=== PATIENT | male | born 2000 | race Caucasian/White ===

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

== ENCOUNTER 2020-08-10 05:58 | Inpatient (IN) | payer OTHER ==
[~2020-08-10] VITALS: Ht 182.9 cm; Wt 88.6 kg
[~2020-08-10 05:58] MED LIST changes: +RISP-7 PO; -RISP0.5T3 PO
[2020-08-10] MEDS ORDERED: HALOPERIDOL 5MG/ML VIAL (J1630 PER 1) IM ONE (06:05)
[2020-08-10] MEDS ORDERED: LORazepam 2 MG/ML VIAL As Ordered ONE (06:05)
[2020-08-10] MEDS ORDERED: LORazepam 2 MG/ML VIAL IM ONE (06:05)
[2020-08-10] MEDS ORDERED: HALOPERIDOL 5MG/ML VIAL (J1630 PER 1) As Ordered ONE (06:05)
[2020-08-10] MEDS ORDERED: SERO1TAB PO (06:22)
[2020-08-10] MEDS ORDERED: [UNRECOGNIZED DRUG - CODE] IM (06:22)
[2020-08-10 06:33] LABS: HEMATOCRIT 48.1 % (42.0-52.0); HEMOGLOBIN 17.4 g/dl (13.5-17.5); MEAN CORPUSCULAR HEMOGLOBIN 30.6 pg (27.0-33.0); MEAN CORPUSCULAR HGB CONC 36.2 g/dl (32.0-36.5); MEAN CORPUSCULAR VOLUME 84.7 fl (80.0-96.0); PLATELET COUNT, AUTOMATED 225 10^3/uL (150-450); RED BLOOD COUNT 5.68 10^6/uL (4.30-6.10); WHITE BLOOD COUNT 12.4 10^3/uL (4.0-10.0)
[2020-08-10 07:01] LABS: BLOOD UREA NITROGEN 14 MG/DL (7-18); CALCIUM LEVEL 8.3 MG/DL (8.5-10.1); CARBON DIOXIDE LEVEL 23 MEQ/L (21-32); CHLORIDE LEVEL 106 MEQ/L (98-107); CREATININE FOR GFR 0.98 MG/DL (0.70-1.30); GLUCOSE, FASTING 84 MG/DL (70-100); POTASSIUM SERUM 3.5 MEQ/L (3.5-5.1); SODIUM LEVEL 138 MEQ/L (136-145)
[2020-08-10 07:02] LABS: ACETAMINOPHEN LEVEL < 2.0 UG/ML (10.0-30.0); ALBUMIN 4.4 GM/DL (3.2-5.2); ALT/SGPT 38 U/L (12-78); BILIRUBIN,DIRECT 0.2 MG/DL (0.0-0.2); BILIRUBIN,TOTAL 0.8 MG/DL (0.2-1.0); ETHYL ALCOHOL (ETHANOL) 0.038 % (0.000-0.010); SALICYLATE LEVEL < 1.7 MG/DL (5.0-30.0); TOTAL PROTEIN 7.2 GM/DL (6.4-8.2)
[2020-08-10 10:49] LABS: AMPHETAMINES LEVEL URINE NEGATIVE (NEGATIVE); BARBITURATES URINE NEGATIVE (NEGATIVE); BENZODIAZEPINES URINE NEGATIVE (NEGATIVE); CANNABINOIDS URINE NEGATIVE (NEGATIVE); COCAINE METABOLITE URINE NEGATIVE (NEGATIVE); METHADONE URINE NEGATIVE (NEGATIVE); OPIATES URINE NEGATIVE (NEGATIVE); PHENCYCLIDINE URINE NEGATIVE (NEGATIVE)
[2020-08-10] MEDS ORDERED: LORazepam 1 MG TAB PO STA (15:52)
[2020-08-10] MEDS ORDERED: LORazepam 2 MG TAB PO STA (17:21)
[2020-08-10] MEDS ORDERED: RISP-8 PO (18:16)
[2020-08-10] MEDS ORDERED: risperiDONE 1 MG TAB PO ONE (19:25)
[2020-08-10] MEDS ORDERED: QUEtiapine FUMARATE 100 MG TAB PO ONE (19:25)
[2020-08-11] MEDS ORDERED: LORazepam 2 MG TAB PO ONE (04:00)
[2020-08-11] MEDS ORDERED: risperiDONE 1 MG TAB PO ONE ×2 (08:50→20:30)
[2020-08-11] MEDS ORDERED: LORazepam 1 MG TAB PO STA (12:57)
[2020-08-11 17:48] LABS: RSV AMPLIFICATION NEGATIVE (NEGATIVE)
--- NOTE | 2020-08-11 18:10 | ECGEPIP ---
[facility] - ED Test Date: 2020-08-10 Pat Name: DHEERAJ BAUTISTA Department: Room: - Gender: Male Pump Tester: : 2000 Requested By: Jignesh Suggs Order Number: [id number] Reading MD: Jignesh Suggs Measurements Intervals [place] Rate: 76 P: 30 OK: 130 QRS: 82 QRSD: 86 T: 46 QT: 380 QTc: 427 Interpretive Statements Normal sinus rhythm Nonspecific ST T wave changes cw 06/27/[address] T wave changes Electronically Signed on 08-11-2020 18:10:30 EDT by Jignesh Suggs
[2020-08-11] MEDS ORDERED: LORazepam 2 MG TAB PO STA (18:47)
[2020-08-11] MEDS ORDERED: QUEtiapine FUMARATE 100 MG TAB PO ONE (20:30)
[2020-08-12] MEDS ORDERED: OLANZapine ORAL DISINTEGRATING TAB 5MG PO ONE (02:00)
[2020-08-12] MEDS ORDERED: LORazepam 2 MG TAB PO ONE (06:35)
[2020-08-12] MEDS ORDERED: risperiDONE 1 MG TAB PO ONE (06:35)
[2020-08-12] MEDS ORDERED: LORazepam 2 MG TAB PO STA (10:48)
[2020-08-12] MEDS ORDERED: MOM 30ML SUSPENSION UDC PO PRN (11:35)
[2020-08-12] MEDS ORDERED: traZODone 50 MG TAB PO PRN (11:35)
[2020-08-12] MEDS ORDERED: MAALOX 30 ML SUSP *UDC PO PRN (11:35)
[2020-08-12] MEDS ORDERED: LORazepam 1 MG TAB PO PRN (11:35)
[2020-08-12] MEDS ORDERED: haloperidoL 5 MG TAB PO PRN (11:35)
[2020-08-12] MEDS ORDERED: ACETAMINOPHEN TAB 650MG DOSE (2X325MG) PO PRN (11:35)
[2020-08-12 14:02] VITALS: BP 153/76
[2020-08-12] MEDS ORDERED: PALIPERIDONE 6 MG ER TAB (INVEGA) PO SCH (18:00)
[2020-08-13 06:00] VITALS: BP 150/70
[2020-08-13] MEDS ORDERED: risperiDONE 1 MG TAB PO SCH (09:00)
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
[2020-08-13] MEDS ORDERED: BENZTROPINE MESYLATE 2MG/2ML VIAL IM ONE (13:00)
[2020-08-13] MEDS ORDERED: BENZTROPINE MESYLATE 2MG/2ML VIAL As Ordered ONE (13:03)
[2020-08-13] MEDS: NICOTINE 21MG/24HR 1 EA TRANSDERMAL TD PRN (15:48)
--- NOTE | 2020-08-13 16:17 | HPEPDOC ---
[facility] Medical History & Physical Date of Admission Aug 13, 2020 Date of Service: Aug 13, 2020 History and Physical CHIEF COMPLAINT: agitation HISTORY OF PRESENT ILLNESS: A 19-year-old male with past medical history of ADHD and bipolar disorder, brought to ER by police due to agitated behavior, restlessness suspected angel. Patient reports perking up this girlfriend recently. Patient does not want to go to detox to why he is here. He is conversational and pleasant, although appears to be mistrusting. Patient denies any chest pain, palpitations, nausea, vomiting, diarrhea, headaches, seizures, blurred vision. Noted to have slight elevation of WBC. Denies any dysuria, cough, shortness of breath or diarrhea. Hospitalist service was consulted for medical intake. PAST MEDICAL HISTORY: ADHD, bipolar PAST SURGICAL HISTORY: Reports none SOCIAL HISTORY: Smokes daily. He also chews tobacco. Vapes. Denies etoh use, however MODE elevated Denies illicit drug use FAMILY HISTORY: Reviewed with patient. No pertinent family history, provided ALLERGIES: Please see below. REVIEW OF SYSTEMS: 10 point ROS was completed of the findings are noted in the HPI. HOME MEDICATIONS: Please see below. PHYSICAL EXAMINATION: VITAL SIGNS: please see below General: NAD, comfortable HEENT: PERRLA, EOMI, sclerae clear Neck: supple, normal ROM, no JVD Respiratory: lungs CTAB, no wheeze, no rales, no crackles CVS: RRR, normal S1, S2, no murmurs Abdo: soft, no masses, no hepatosplenomegaly, BS+, no rebound tenderness Extremities: no edema, pulses 2+ MSK: no joint deformities, normal ROM Neuro: no focal neuro deficits, moving all 4 extremities, CN2-12 intact. Strength 5/5 in all 4 extremities. No nystagmus. Psych: calm, cooperative, AAO x 3 LABORATORY DATA: See below. MICROBIOLOGY: Please see below. ASSESSMENT: A 19-year-old male with past medical history of ADHD and bipolar disorder, brought to ER by police due to agitated behavior, restlessness suspected angel. Patient reports perking up this girlfriend recently. Patient does not want to go to detox to why he is here. He is conversational and pleasant, although appears to be mistrusting. Patient denies any chest pain, palpitations, nausea, vomiting, diarrhea, headaches, seizures, blurred vision. Noted to have slight elevation of WBC. Denies any dysuria, cough, shortness of breath or diarrhea. Hospitalist service was consulted for medical intake. PLAN: #Manic behaviour/bipolar: per psychiatry #Leukocytosis: denies cough, dysuria, fevers, chills. Afebrile. Possibly reactive. Will repeat CBC. #Nicotine dependence: nicotine patch. Smoking cessation counseling provided. Thank you for involving me in the care of the patient. Please reconsult as needed. Vital Signs Vital Signs Date Time Temp Pulse Resp B/P (MAP) Pulse Ox O2 Delivery O2 Flow Rate FiO2 08/13/20 06:00 97.2 76 16 150/70 (96) 98 Room Air Home Medications Scheduled Paliperidone Palmitate (Invega Sustenna) 78 Mg/0.5 Ml Syringe, 78 MG IM QMONTH Quetiapine Fumarate (Seroquel) 100 Mg Tablet, 100 MG PO QHS Risperidone (Risperidone) 1 Mg Tablet, 1 MG PO BID Allergies Coded Allergies: diphenhydramine (Verified Allergy, Intermediate, AGITATION, 08/10/20) A-FIB/CHADSVASC A-FIB History Current/History of A-Fib/PAF?: No Current PO Anticoag Therapy: No MARTINE MCKOY MD Aug 13, 2020 16:17
[2020-08-13 17:58] LABS: BASO # 0.1 10^3/uL (0.0-0.2); BASO % 0.5 % (0.0-1.0); EOS # 0.1 10^3/uL (0.0-0.5); EOS % 1.2 % (0.0-3.0); HEMATOCRIT 46.5 % (42.0-52.0); HEMOGLOBIN 16.4 g/dl (13.5-17.5); LYMPH # 3.3 10^3/uL (1.5-5.0); LYMPH % 32.7 % (24.0-44.0); MEAN CORPUSCULAR HEMOGLOBIN 30.4 pg (27.0-33.0); MEAN CORPUSCULAR HGB CONC 35.3 g/dl (32.0-36.5); MEAN CORPUSCULAR VOLUME 86.1 fl (80.0-96.0); MONO % 9.8 % (2.0-8.0); NEUTROPHILS # 5.5 10^3/uL (1.5-8.5); NEUTROPHILS % 55.3 % (36.0-66.0); PLATELET COUNT, AUTOMATED 240 10^3/uL (150-450)
[2020-08-13 18:32] VITALS: BP 146/87
[2020-08-13] MEDS: QUEtiapine FUMARATE 100 MG TAB PO SCH (20:39)
[2020-08-14 06:24] VITALS: BP 143/84
[2020-08-14] MEDS: NICOTINE 21MG/24HR 1 EA TRANSDERMAL TD PRN (08:07)
--- NOTE | 2020-08-14 11:28 | MHIPNPDOC ---
[facility] Progress Note Progress Note DATE OF SERVICE: 08/14/20 HISTORY: Patient is a 19-year-old Single, Employed , male, who was brought in by his mother for manic behaviors. He states, "I don't know why I am here. I guess it was because I was manic." When asked what had precipitated his manic he states, "I don't remember." When asked what his mother's concerns were, he shrugs his shoulders and states "I dumped my girlfriend because she was trying to be like my Mom and nobody fucking does that." Patient was not forthcoming and much of the information is obtained from the ED report. Patient was very minimal in his responses and was hostile and mildly agitated. PER ED REPORT: Pt came to [facility] with police due to a manic episode. Pts mother is in his room with him, this seems to calm pt. down significantly. Pt is very verbally ag itated, restless, appears manic however, is currently redirectable. Pt reports that he came here via police, pt. is unsure why. Pt reports that he has not slept. Pt reports that he is currently hearing voices however, does not feel comfortable telling tw what the voices are saying. Pt reports that he sees Dr. French, and that everything is going fine. Pt begins to talk in circles and seems very restless, has racing thoughts and pressured speech. Pt reports that 2 weeks ago, he broke up with his girlfriend because, "she is a bitch". Pt will not go into detail on why she is a bitch and what made him breakup with her. Pt began pacing back and forth, pt. is unable to engage in conversation therefore, interview was aborted prematurely. Pts mother is a better historian and reports that pt. has been having periods of angel since he was 13. Pts mother reports that Dr. French has been doing wonders with pts mental health and they have gone awhile since pt. has declined. Pts mother reports that pt. is on Invega Sustenna and had a dose of 117 yesterday 08/09/2020. Pts mother reports that when he gets like this they know it is time for an inpt stay. Pts mother also reports that pt. is on Seroquel and Risperdal as needed and that pt. has been compliant with all medications. Tw tried to talk with pt. at 12:30 pm, pt. was sleeping. Pt mom asked tw if we could continue to let him sleep. Tw tried talking with pt. at 2:15 pm, at the request of the pt. approximately a half hour prior however, once tw was available for interview pt. was sleeping and difficult to wake. VITAL SIGNS: See below. NEW TEST RESULTS: No abnormalities in cholesterol/Lipid Panel CURRENT MEDICATIONS: See below. MENTAL STATUS EXAMINATION: Patient is a 19-year-old Single, Employed , male, who was brought in by his mother for manic behaviors. He states, "I don't know why I am here. I guess it was because I was manic." General Appearance: unkempt, disheveled, appears stated age Build: average Demeanor: cooperative and pleasant Eye Contact: intense Activity: average Behavior: cooperative Speech: clear Mood: euthymic Affect: full Thought Process: logical/linear Thought Content (Delusions): denies SI, HI, AVH Thought Content (Other): guarded Thought Content (Aggressive): none reported Perception (Hallucinations): none reported Perception (Other): none reported Cognition (Impairment of): none reported Cognition(Intelligence Est.): average Oriented: Awake, Alert, Oriented times three Insight: fair Judgment: Fair Psychosis: Denies DIAGNOSES: Bipolar I, Recurrent, Manic ASSESSMENT: Patient is calm and cooperative. He is social in the milieu, out in the common areas. States that he is attending groups. He denies depression or anxiety. He is not observed with any manic or psychotic behaviors. Patient states that he is at his baseline and does not feel manic today. He is not agitated or irritable or hostile in today's interview. States that he would like to be discharged soon. Patient met with this provider in the late afternoon yesterday. He was complaining of being very agitated. He then became very agitated while in the office and yelled, "I can't take it! It feels like there are bugs crawling all over me!" Patient began to rip his shirt off of him. Stat order of Cogentin 2 mg IM was ordered. Patient reported that this was very effective and that he had not had that Akathisia side effect since yesterday. He requests in today's session a PRN of Cogentin on discharge. MANAGEMENT PLAN: Continue all medications, possible discharge tomorrow TIME SPENT: 25 minutes. Vital Signs Vital Signs Date Time Temp Pulse Resp B/P (MAP) Pulse Ox O2 Delivery O2 Flow Rate FiO2 08/14/20 06:24 97.1 104 18 143/84 (103) 100 Room Air Laboratory Data 24H Labs Laboratory Tests 2 08/13/20 16:34: Immature Granulocyte % (Auto) 0.5, Neutrophils (%) (Auto) 55.3, Lymphocytes (%) (Auto) 32.7, Monocytes (%) (Auto) 9.8H, Eosinophils (%) (Auto) 1.2, Basophils (%) (Auto) 0.5, Neutrophils # (Auto) 5.5, Lymphocytes # (Auto) 3.3, Monocytes # (Auto) 1.0H, Eosinophils # (Auto) 0.1, Basophils # (Auto) 0.1, Nucleated Red Blood Cells % (auto) 0.0 CBC/BMP Laboratory Tests 08/13/20 16:34 Current Medications Current Medications Medications (Trade) Dose Ordered Sig/Sandra Route PRN Reason Start Time Stop Time Status Last Admin Dose Admin Acetaminophen (Tylenol Tab) 650 mg Q6HP PRN PO HEADACHE or MILD DISCOMFORT 08/12/20 11:35 Al Hydrox/Mg Hydrox/Simethicone (Mylanta) 30 ml Q4HP PRN PO HEARTBURN/INDIGESTION 08/12/20 11:35 Haloperidol (Haldol) 5 mg Q6HP PRN PO ANXIETY/AGITATION 08/12/20 11:35 08/12/20 22:18 Home Med (Med Rec Complete!) ASDIRECTED XX 08/10/20 18:20 08/10/20 18:19 DC Lorazepam (Ativan) 1 mg Q6HP PRN PO ANXIETY/AGITATION 08/12/20 11:35 08/12/20 22:18 Lorazepam (Ativan) 1 mg STAT STAT PO 08/10/20 15:52 08/10/20 15:53 DC 08/10/20 16:05 Lorazepam (Ativan) 1 mg STAT STAT PO 08/11/20 12:57 08/11/20 12:58 DC 08/11/20 13:07 Lorazepam (Ativan) 2 mg NOW STAT PO 08/11/20 18:47 08/11/20 18:51 DC 08/11/20 19:42 Lorazepam (Ativan) 2 mg STAT STAT PO 08/10/20 17:21 08/10/20 17:22 DC 08/10/20 17:26 Lorazepam (Ativan) 2 mg STAT STAT PO 08/12/20 10:48 08/12/20 10:50 DC 08/12/20 10:53 Magnesium Hydroxide (Milk Of Magnesia) 30 ml DAILYPRN PRN PO CONSTIPATION 08/12/20 11:35 Nicotine (Nicoderm Cq 21mg) 1 patch DAILYPRN PRN TD NICOTINE WITHDRAWAL 08/13/20 15:40 08/14/20 08:07 Paliperidone (Invega) 6 mg DAILY@1800 PO 08/12/20 18:00 08/13/20 12:59 DC 08/12/20 17:22 Quetiapine Fumarate (SEROquel) 100 mg QHS PO 08/13/20 21:00 08/13/20 20:39 Risperidone (RisperDAL) 1 mg BID PO 08/13/20 09:00 08/13/20 10:28 DC 08/13/20 09:34 Trazodone HCl (Desyrel) 50 mg QHSP PRN PO INSOMNIA 08/12/20 11:35 08/12/20 21:14 Allergies Coded Allergies: diphenhydramine (Verified Allergy, Intermediate, AGITATION, 08/10/20) DEANA LEON NP Aug 14, 2020 11:28
[2020-08-14] MEDS ORDERED: BENZTROPINE MESYLATE 2MG/2ML VIAL IM ONE (15:00)
[2020-08-14 19:21] VITALS: BP 173/86
[2020-08-14] MEDS: QUEtiapine FUMARATE 100 MG TAB PO SCH (20:17)
[2020-08-15 06:48] VITALS: BP 154/69
[2020-08-15] MEDS ORDERED: NICO21PAT TD (09:05)
[2020-08-15] MEDS ORDERED: SERO1TAB PO (09:05)
[2020-08-15] MEDS ORDERED: RISP-8 PO (09:05)
--- NOTE | 2020-08-15 11:15 | MHDSPDOC ---
[facility] Discharge Summary Discharge Summary DATE OF ADMISSION: Aug 12, 2020 at 05:57 DATE OF DISCHARGE: August 15, 2020 at 0908 DISCHARGE DIAGNOSES: Bipolar I, Recurrent, Manic REASON FOR ADMISSION: : Patient is a 19-year-old Single, Employed , male, who was brought in by his mother for manic behaviors. He states, "I don't know why I am here. I guess it was because I was manic." When asked what had precipitated his manic he states, "I don't remember." When asked what his mother's concerns were, he shrugs his shoulders and states "I dumped my girlfriend because she was trying to be like my Mom and nobody fucking does that." Patient was not forthcoming and much of the information is obtained from the ED report. Patient was very minimal in his responses and was hostile and mildly agitated. PER ED REPORT: Pt came to [facility] with police due to a manic episode. Pts mother is in his room with him, this seems to calm pt. down significantly. Pt is very verbally agitated, restless, appears manic however, is currently redirectable. Pt reports that he came here via police, pt. is unsure why. Pt reports that he has not slept. Pt reports that he is currently hearing voices however, does not feel comfortable telling tw what the voices are saying. Pt reports that he sees Dr. French, and that everything is going fine. Pt begins to talk in circles and seems very restless, has racing thoughts and pressured speech. Pt reports that 2 weeks ago, he broke up with his girlfriend because, "she is a bitch". Pt will not go into detail on why she is a bitch and what made him breakup with her. Pt began pacing back and forth, pt. is unable to engage in conversation therefore, interview was aborted prematurely. Pts mother is a better historian and reports that pt. has been having periods of angel since he was 13. Pts mother reports that Dr. French has been doing wonders with pts mental health and they have gone awhile since pt. has declined. Pts mother reports that pt. is on Invega Sustenna and had a dose of 117 yesterday 08/09/2020. Pts mother reports that when he gets like this they know it is time for an inpt stay. Pts mother also reports that pt. is on Seroquel and Risperdal as needed and that pt. has been compliant with all medications. Tw tried to talk with pt. at 12:30 pm, pt. was sleeping. Pt mom asked tw if we could continue to let him sleep. Tw tried talking with pt. at 2:15 pm, at the request of the pt. approximately a half hour prior however, once tw was available for interview pt. was sleeping and difficult to wake. VITAL SIGNS: See below. TREATMENT AND PROGRESS ON THE UNIT: Patient was admitted to the [facility] on a 9.39 legal status he was afforded the following treatment modalities: 1) Individual Therapy 2) Group Therapy 3) Medication Management 4) Milieu Therapy 5) Safe Environment HOSPITAL COURSE: Patient was admitted to [facility] on a 9.39 legal status. He was restarted on his home medication While admitted he had mild presentation of hypomania and denied suicidal or homiocidal thoughts, He denies depression and anxiety, denies thoughts to self harm or harm others. He attended groups and acted accordingly while on the unit. He was social and conversant with his peers. He was compliant with medications and is requesting discharge today. DISCHARGE ASSESSMENT: In today's interview, patient is alert and oriented, pts dress is appropriate. Hygiene and grooming is well-kempt. Smiles on approach and is pleasant and engaged in the interview. Denies depression and anxiety. Denies suicidal and homicidal ideation, planning or intent. Denies and is not observed with angel, psychotic symptoms of delusions, bizarre thinking, obsessions, paranoia, ruminations illogical thoughts, flight of ideas or having poor insight and judgement. Patient has normal mentation, declines further hospitalization on a voluntary status and meets criteria for discharge today. Patient encouraged to return to hospital if symptoms worsen or change and encouraged to call unit if he/she/they needs to speak to provider for questions regarding medications or care. MENTAL STATUS EXAMINATION ON DISCHARGE: Patient is a 19-year-old Single, Employed , male, who was brought in by his mother for manic behaviors. He states, "I don't know why I am here. I guess it was because I was manic." General Appearance: well-kempt, appears stated age Build: average Demeanor: cooperative and pleasant Eye Contact: intense Activity: average Behavior: cooperative Speech: clear Mood: euthymic Affect: full Thought Process: logical/linear Thought Content (Delusions): denies SI, HI, AVH Thought Content (Other): guarded Thought Content (Aggressive): none reported Perception (Hallucinations): none reported Perception (Other): none reported Cognition (Impairment of): none reported Cognition(Intelligence Est.): average Oriented: Awake, Alert, Oriented times three Insight: fair Judgment: Fair Psychosis: Denies MEDICATIONS ON DISCHARGE: See Medication Reconciliation PLAN/FOLLOWUP ARRANGEMENTS: Dr. Smith French The amount of time spent in the coordination of care for this patient was approximately 25 minutes. ETOH/Disorder Med Rx ETOH/DRUG DISORDER RX: Offrd @ d/c & pt refused Vital Signs/I&Os Vital Signs Date Time Temp Pulse Resp B/P (MAP) Pulse Ox O2 Delivery O2 Flow Rate FiO2 08/15/20 06:48 98.4 88 18 154/69 (97) 97 Room Air Medications Scheduled Paliperidone Palmitate (Invega Sustenna) 78 Mg/0.5 Ml Syringe, 78 MG IM QMONTH, (Reported) Quetiapine Fumarate (Seroquel) 100 Mg Tablet, 100 MG PO QHS for Sleep, #7 Risperidone (Risperidone) 1 Mg Tablet, 1 MG PO BID for Mood, #7 Scheduled PRN Nicotine (Nicotine Patch) 21 Mg Patch.td24, 1 PATCH TD DAILYPRN PRN for NICOTINE WITHDRAWAL, #7 Allergies Coded Allergies: diphenhydramine (Verified Allergy, Intermediate, AGITATION, 08/10/20) DEANA LEON REPORTING PROCESS CONSULTANT Aug 15, 2020 09:09
[2020-08-15] MEDS ORDERED: BENZ0.5T23 PO (12:21)
== END 2020-08-15 11:20 | disposition home or self-care (01) | DRG 885 ==
LOC: M ED 05:58 → M ED INP 08-12 05:57 → M PSY 08-12 14:08
PROVIDERS: ADMIT Psychiatry & Neurology Psychiatry; ATTEND Psychiatry & Neurology Psychiatry
DX: F31.9 Bipolar disorder, unspecified (principal); F17.290 Nicotine dependence, other tobacco product, uncomplicated; Z20.822 Contact with and (suspected) exposure to COVID-19; D72.829 Elevated white blood cell count, unspecified

== ENCOUNTER → 2021-02-21 | Outpatient (REF) | payer OTHER ==
[~2021-02-21] MED LIST changes: +BENZ0.5T23 PO; +NICO21PAT TD; +RISP-8 PO; +SERO1TAB PO; +[UNRECOGNIZED DRUG - CODE] IM
== END ==
LOC: M SFHCADAM 17:27
PROVIDERS: ATTEND Physician Assistant Medical
DX: R19.5 Other fecal abnormalities (principal)

== ENCOUNTER → 2021-02-23 | Outpatient (REF) | payer OTHER | LOC: M LAB REF 12:31 | PROVIDERS: ATTEND Physician Assistant Medical | DX: R19.5 Other fecal abnormalities (principal) ==

== ENCOUNTER 2021-04-14 00:43 | Inpatient (IN) | payer OTHER ==
[~2021-04-14] VITALS: Ht 175.3 cm; Wt 90.5 kg
[2021-04-14] MEDS ORDERED: RISP1SS PO (01:04)
[2021-04-14] MEDS ORDERED: LAMO100T80 PO (01:06)
[2021-04-14] MEDS ORDERED: TRAZ300T2 PO (01:06)
[2021-04-14 01:44] LABS: HEMATOCRIT 44.7 % (42.0-52.0); HEMOGLOBIN 16.3 g/dl (13.5-17.5); MEAN CORPUSCULAR HEMOGLOBIN 30.8 pg (27.0-33.0); MEAN CORPUSCULAR HGB CONC 36.5 g/dl (32.0-36.5); MEAN CORPUSCULAR VOLUME 84.5 fl (80.0-96.0); PLATELET COUNT, AUTOMATED 199 10^3/uL (150-450); RED BLOOD COUNT 5.29 10^6/uL (4.30-6.10); WHITE BLOOD COUNT 9.1 10^3/uL (4.0-10.0)
[2021-04-14] MEDS ORDERED: TRAZ-252 PO (01:50)
[2021-04-14] MEDS ORDERED: RISP-9 PO (01:50)
[2021-04-14] MEDS ORDERED: HOME MED LIST COMPLETE! XX SCH (01:55)
[2021-04-14 02:21] LABS: ACETAMINOPHEN LEVEL < 2.0 UG/ML (10.0-30.0); ALBUMIN 3.9 GM/DL (3.2-5.2); ALT/SGPT 44 U/L (12-78); BILIRUBIN,DIRECT 0.1 MG/DL (0.0-0.2); BILIRUBIN,TOTAL 0.4 MG/DL (0.2-1.0); BLOOD UREA NITROGEN 16 MG/DL (7-18); CALCIUM LEVEL 8.9 MG/DL (8.5-10.1); CARBON DIOXIDE LEVEL 26 MEQ/L (21-32); CHLORIDE LEVEL 108 MEQ/L (98-107); ETHYL ALCOHOL (ETHANOL) < 0.003 % (0.000-0.010); GLOMERULAR FILTRATION RATE > 60.0 (>60); GLUCOSE, FASTING 106 MG/DL (70-100); POTASSIUM SERUM 3.5 MEQ/L (3.5-5.1); SALICYLATE LEVEL < 1.7 MG/DL (5.0-30.0); SODIUM LEVEL 141 MEQ/L (136-145); TOTAL PROTEIN 7.1 GM/DL (6.4-8.2)
[2021-04-14 02:33] LABS: RSV AMPLIFICATION NEGATIVE (NEGATIVE)
[2021-04-14] MEDS ORDERED: LORazepam 2 MG TAB PO STA (02:45)
[2021-04-14] MEDS ORDERED: ACETAMINOPHEN TAB 650MG DOSE (2X325MG) PO ONE (03:15)
[2021-04-14] MEDS ORDERED: risperiDONE 2 MG TAB PO SCH (09:00)
[2021-04-14] MEDS ORDERED: lamoTRIgine 100MG TAB PO SCH (09:00)
[2021-04-14 09:01] LABS: AMPHETAMINES LEVEL URINE NEGATIVE (NEGATIVE); BARBITURATES URINE NEGATIVE (NEGATIVE); BENZODIAZEPINES URINE NEGATIVE (NEGATIVE); CANNABINOIDS URINE NEGATIVE (NEGATIVE); COCAINE METABOLITE URINE NEGATIVE (NEGATIVE); METHADONE URINE NEGATIVE (NEGATIVE); OPIATES URINE NEGATIVE (NEGATIVE); PHENCYCLIDINE URINE NEGATIVE (NEGATIVE)
[2021-04-14] MEDS ORDERED: LORazepam 2 MG TAB PO ONE (10:50)
[2021-04-14] MEDS ORDERED: MAALOX 30 ML SUSP *UDC PO PRN (13:45)
[2021-04-14] MEDS ORDERED: MOM 30ML SUSPENSION UDC PO PRN (13:45)
[2021-04-14] MEDS: LORazepam 2 MG TAB PO PRN (15:26)
[2021-04-14 15:50] VITALS: BP 141/84
[2021-04-14] MEDS ORDERED: DIVALPROEX 500MG *ER* TAB PO SCH (16:35)
[2021-04-15] MEDS ORDERED: NICOTINE 21MG/24HR 1 EA TRANSDERMAL TD SCH (02:00)
[2021-04-15] MEDS: LORazepam 2 MG TAB PO PRN ×3 (02:37→23:19)
[2021-04-15] MEDS: ACETAMINOPHEN TAB 650MG DOSE (2X325MG) PO PRN ×2 (03:19→21:32)
[2021-04-15 06:48] VITALS: BP 156/79
[2021-04-15] MEDS: lamoTRIgine 100MG TAB PO SCH (08:23)
[2021-04-15] MEDS: NICOTINE 21MG/24HR 1 EA TRANSDERMAL TD SCH (08:24)
[2021-04-15] MEDS ORDERED: risperiDONE 2 MG TAB PO SCH (09:00)
[2021-04-15 17:45] VITALS: BP 132/84
[2021-04-15] MEDS: risperiDONE 2 MG TAB PO SCH (21:30)
[2021-04-15] MEDS: traZODone 50 MG TAB PO PRN (23:19)
[2021-04-16 07:15] VITALS: BP 120/68
[2021-04-16] MEDS: risperiDONE 2 MG TAB PO SCH ×2 (08:04→20:08)
[2021-04-16] MEDS: NICOTINE 21MG/24HR 1 EA TRANSDERMAL TD SCH (08:04)
[2021-04-16] MEDS: lamoTRIgine 100MG TAB PO SCH (08:04)
[2021-04-16] MEDS: ACETAMINOPHEN TAB 650MG DOSE (2X325MG) PO PRN ×3 (09:30→19:26)
[2021-04-16] MEDS: LORATADINE 10 MG TAB PO SCH (13:35)
[2021-04-16 18:44] VITALS: BP 118/55
[2021-04-16] MEDS: traZODone 50 MG TAB PO PRN (20:08)
[2021-04-16] MEDS: LORazepam 2 MG TAB PO PRN (21:45)
[2021-04-17] MEDS: NICOTINE 21MG/24HR 1 EA TRANSDERMAL TD SCH (08:02)
[2021-04-17] MEDS: lamoTRIgine 100MG TAB PO SCH (08:02)
[2021-04-17] MEDS: risperiDONE 2 MG TAB PO SCH ×2 (08:02→20:52)
[2021-04-17] MEDS: LORATADINE 10 MG TAB PO SCH (08:02)
[2021-04-17] MEDS ORDERED: BENZTROPINE 0.5 MG TAB PO PRN (12:35)
[2021-04-17] MEDS ORDERED: BENZTROPINE MESYLATE 2MG/2ML VIAL IM ONE (12:35)
[2021-04-17] MEDS: ACETAMINOPHEN TAB 650MG DOSE (2X325MG) PO PRN (15:58)
[2021-04-17 17:58] VITALS: BP 137/81
[2021-04-17] MEDS: LORazepam 2 MG TAB PO PRN (20:53)
[2021-04-18 06:19] VITALS: BP 125/74
[2021-04-18] MEDS: LORATADINE 10 MG TAB PO SCH (08:35)
[2021-04-18] MEDS: risperiDONE 2 MG TAB PO SCH ×2 (08:35→20:00)
[2021-04-18] MEDS: NICOTINE 21MG/24HR 1 EA TRANSDERMAL TD SCH (08:35)
[2021-04-18] MEDS: lamoTRIgine 100MG TAB PO SCH (08:35)
[2021-04-18 19:17] VITALS: BP 132/86
[2021-04-18] MEDS: LORazepam 2 MG TAB PO PRN (19:45)
[2021-04-19 07:00] VITALS: BP 150/90
[2021-04-19] MEDS: NICOTINE 21MG/24HR 1 EA TRANSDERMAL TD SCH (08:21)
[2021-04-19] MEDS: lamoTRIgine 100MG TAB PO SCH (08:22)
[2021-04-19] MEDS: LORATADINE 10 MG TAB PO SCH (08:22)
[2021-04-19] MEDS: risperiDONE 2 MG TAB PO SCH ×2 (08:22→20:15)
[2021-04-19] MEDS ORDERED: risperiDONE LONG-ACTING 37.5 MG/2 ML INJ (J2794 PER 0.5MG) IM SCH (09:00)
[2021-04-19 18:43] VITALS: BP 140/84
[2021-04-20 06:25] VITALS: BP 150/70
[2021-04-20] MEDS: risperiDONE 2 MG TAB PO SCH ×2 (07:49→20:57)
[2021-04-20] MEDS: LORATADINE 10 MG TAB PO SCH (07:50)
[2021-04-20] MEDS: lamoTRIgine 100MG TAB PO SCH (07:50)
[2021-04-20] MEDS: NICOTINE 21MG/24HR 1 EA TRANSDERMAL TD SCH (07:51)
[2021-04-20] MEDS: LORazepam 1 MG TAB PO PRN (16:03)
[2021-04-20 18:35] VITALS: BP 140/80
[2021-04-20] MEDS: NYSTATIN 100,000 UNITS/GM TOPICAL PWD 15 GM TOP SCH (20:57)
[2021-04-21 06:28] VITALS: BP 131/69
[2021-04-21] MEDS: lamoTRIgine 100MG TAB PO SCH (08:48)
[2021-04-21] MEDS: LORATADINE 10 MG TAB PO SCH (08:48)
[2021-04-21] MEDS: risperiDONE 2 MG TAB PO SCH ×2 (08:49→19:58)
[2021-04-21] MEDS: NICOTINE 21MG/24HR 1 EA TRANSDERMAL TD SCH (08:49)
[2021-04-21] MEDS: NYSTATIN 100,000 UNITS/GM TOPICAL PWD 15 GM TOP SCH ×2 (08:49→19:58)
[2021-04-21] MEDS: LORazepam 1 MG TAB PO PRN (13:48)
[2021-04-21 16:18] VITALS: BP 136/70
[2021-04-22 06:25] VITALS: BP 135/60
[2021-04-22] MEDS ORDERED: CLAR10TA7 PO (08:22)
[2021-04-22] MEDS ORDERED: [UNRECOGNIZED DRUG - CODE] IM (08:22)
[2021-04-22] MEDS ORDERED: LAMO100T80 PO (08:22)
[2021-04-22] MEDS ORDERED: BENZ0.5T23 PO (08:22)
[2021-04-22] MEDS ORDERED: NICO21PAT TD (08:22)
[2021-04-22] MEDS: lamoTRIgine 100MG TAB PO SCH (08:35)
[2021-04-22] MEDS: risperiDONE 2 MG TAB PO SCH (08:36)
[2021-04-22] MEDS: LORATADINE 10 MG TAB PO SCH (08:36)
[2021-04-22] MEDS: LORazepam 1 MG TAB PO PRN (08:36)
[2021-04-22] MEDS: NYSTATIN 100,000 UNITS/GM TOPICAL PWD 15 GM TOP SCH (08:37)
[2021-04-22] MEDS: NICOTINE 21MG/24HR 1 EA TRANSDERMAL TD SCH (08:37)
[2021-04-22] MEDS ORDERED: RISP37INJ IM (09:41)
[2021-04-22] MEDS ORDERED: RISP2TAB32 PO (09:42)
== END 2021-04-22 13:00 | disposition home or self-care (01) | DRG 885 ==
LOC: M ED 00:43 → M ED INP 13:44 → M PSY 15:42
PROVIDERS: ADMIT Psychiatry & Neurology Psychiatry; ATTEND Psychiatry & Neurology Psychiatry
DX: F31.9 Bipolar disorder, unspecified (principal); F17.200 Nicotine dependence, unspecified, uncomplicated; F84.9 Pervasive developmental disorder, unspecified; Z79.899 Other long term (current) drug therapy; Z88.8 Allergy status to other drugs, medicaments and biological substances; F90.9 Attention-deficit hyperactivity disorder, unspecified type; F17.220 Nicotine dependence, chewing tobacco, uncomplicated

== ENCOUNTER 2021-05-21 16:58 | Inpatient (IN) | payer OTHER ==
[~2021-05-21] VITALS: Ht 182.9 cm; Wt 109.0 kg
[~2021-05-21 16:58] MED LIST changes: +CLAR10TA7 PO; +LAMO100T80 PO; +RISP-9 PO; +RISP1SS PO; +RISP2TAB32 PO; +RISP37INJ IM; +TRAZ-252 PO; +TRAZ300T2 PO
[2021-05-21] MEDS ORDERED: LORA2TAB14 PO (17:26)
[2021-05-21] MEDS ORDERED: ASEN5TA SL (17:26)
[2021-05-21] MEDS ORDERED: VRAY3CAP PO (17:26)
[2021-05-21] MEDS ORDERED: QUET100T2 PO (17:26)
[2021-05-21 18:10] LABS: HEMATOCRIT 49.8 % (42.0-52.0); HEMOGLOBIN 18.2 g/dl (13.5-17.5); MEAN CORPUSCULAR HGB CONC 36.5 g/dl (32.0-36.5); MEAN CORPUSCULAR VOLUME 84.8 fl (80.0-96.0); PLATELET COUNT, AUTOMATED 179 10^3/uL (150-450); RED BLOOD COUNT 5.87 10^6/uL (4.30-6.10); WHITE BLOOD COUNT 12.3 10^3/uL (4.0-10.0)
[2021-05-21 18:26] LABS: ACETAMINOPHEN LEVEL < 2.0 UG/ML (10.0-30.0); ALBUMIN 4.7 GM/DL (3.2-5.2); ALT/SGPT 38 U/L (12-78); BILIRUBIN,DIRECT 0.2 MG/DL (0.0-0.2); BILIRUBIN,TOTAL 0.7 MG/DL (0.2-1.0); BLOOD UREA NITROGEN 19 MG/DL (7-18); CALCIUM LEVEL 9.6 MG/DL (8.5-10.1); CARBON DIOXIDE LEVEL 26 MEQ/L (21-32); CHLORIDE LEVEL 108 MEQ/L (98-107); ETHYL ALCOHOL (ETHANOL) < 0.003 % (0.000-0.010); GLOMERULAR FILTRATION RATE > 60.0 (>60); GLUCOSE, FASTING 91 MG/DL (70-100); POTASSIUM SERUM 4.2 MEQ/L (3.5-5.1); SALICYLATE LEVEL < 1.7 MG/DL (5.0-30.0); SODIUM LEVEL 141 MEQ/L (136-145); TOTAL PROTEIN 7.7 GM/DL (6.4-8.2)
[2021-05-21 18:44] LABS: RSV AMPLIFICATION NEGATIVE (NEGATIVE)
[2021-05-21] MEDS ORDERED: HOME MED LIST COMPLETE! XX SCH (19:05)
[2021-05-21 19:28] LABS: AMPHETAMINES LEVEL URINE NEGATIVE (NEGATIVE); BARBITURATES URINE NEGATIVE (NEGATIVE); BENZODIAZEPINES URINE NEGATIVE (NEGATIVE); CANNABINOIDS URINE NEGATIVE (NEGATIVE); COCAINE METABOLITE URINE NEGATIVE (NEGATIVE); METHADONE URINE NEGATIVE (NEGATIVE); OPIATES URINE NEGATIVE (NEGATIVE); PHENCYCLIDINE URINE NEGATIVE (NEGATIVE)
[2021-05-21] MEDS ORDERED: OLANZapine ORAL DISINTEGRATING TAB 5MG PO PRN (19:55)
[2021-05-21] MEDS ORDERED: LORazepam 1 MG TAB PO PRN (19:55)
[2021-05-21] MEDS ORDERED: MAALOX 30 ML SUSP *UDC PO PRN (19:55)
[2021-05-21] MEDS ORDERED: MOM 30ML SUSPENSION UDC PO PRN (19:55)
[2021-05-21] MEDS: QUEtiapine FUMARATE 100 MG TAB PO SCH (20:23)
[2021-05-21] MEDS ORDERED: CARIPRAZINE 3MG CAPSULE (VRAYLAR) PO SCH (21:00)
[2021-05-22 01:49] VITALS: BP 168/98
[2021-05-22 06:58] VITALS: BP 164/73
[2021-05-22] MEDS: lamoTRIgine 100MG TAB PO SCH (08:27)
[2021-05-22] MEDS: NICOTINE 21MG/24HR 1 EA TRANSDERMAL TD PRN (08:28)
[2021-05-22] MEDS: LORATADINE 10 MG TAB PO SCH (08:55)
[2021-05-22] MEDS ORDERED: lamoTRIgine 100MG TAB PO ONE (09:00)
[2021-05-22] MEDS: ACETAMINOPHEN TAB 650MG DOSE (2X325MG) PO PRN (09:26)
[2021-05-22] MEDS: LORazepam 1 MG TAB PO PRN ×2 (09:46→10:57)
[2021-05-22 18:37] VITALS: BP 138/86
[2021-05-22] MEDS: CARIPRAZINE 3MG CAPSULE (VRAYLAR) PO SCH (20:43)
[2021-05-22] MEDS: QUEtiapine FUMARATE 100 MG TAB PO SCH (20:43)
[2021-05-23] MEDS: ACETAMINOPHEN TAB 650MG DOSE (2X325MG) PO PRN (00:30)
[2021-05-23] MEDS: LORazepam 2 MG TAB PO PRN ×2 (00:48→11:53)
[2021-05-23 06:23] VITALS: BP 142/76
[2021-05-23] MEDS: NICOTINE 21MG/24HR 1 EA TRANSDERMAL TD PRN (08:09)
[2021-05-23] MEDS: LORATADINE 10 MG TAB PO SCH (08:09)
[2021-05-23] MEDS: lamoTRIgine 100MG TAB PO SCH (08:09)
[2021-05-23 08:17] LABS: CHOLESTEROL RISK RATIO 2.318 (<5)
[2021-05-23] MEDS ORDERED: OLANZapine ORAL DISINTEGRATING TAB 5MG PO PRN (09:20)
[2021-05-23 16:37] VITALS: BP 146/73
[2021-05-23] MEDS: OLANZapine ORAL DISINTEGRATING TAB 5MG PO PRN (16:47)
[2021-05-23] MEDS: QUEtiapine FUMARATE 100 MG TAB PO SCH (21:04)
[2021-05-23] MEDS: CARIPRAZINE 3MG CAPSULE (VRAYLAR) PO SCH (21:04)
[2021-05-24] MEDS: OLANZapine ORAL DISINTEGRATING TAB 5MG PO PRN ×3 (04:48→16:47)
[2021-05-24] MEDS: LORATADINE 10 MG TAB PO SCH (08:14)
[2021-05-24] MEDS: lamoTRIgine 100MG TAB PO SCH (08:15)
[2021-05-24] MEDS: NICOTINE 21MG/24HR 1 EA TRANSDERMAL TD PRN (08:16)
[2021-05-24] MEDS: ACETAMINOPHEN TAB 650MG DOSE (2X325MG) PO PRN (15:33)
[2021-05-24 16:05] VITALS: BP 142/92
[2021-05-24] MEDS: LORazepam 2 MG TAB PO PRN (18:21)
[2021-05-24] MEDS: QUEtiapine FUMARATE 100 MG TAB PO SCH ×2 (21:00→22:10)
[2021-05-24] MEDS: CARIPRAZINE 3MG CAPSULE (VRAYLAR) PO SCH ×2 (21:00→22:10)
[2021-05-25] MEDS: LORazepam 2 MG TAB PO PRN ×3 (00:56→21:24)
[2021-05-25 06:00] VITALS: BP 159/75
[2021-05-25] MEDS: LORATADINE 10 MG TAB PO SCH ×2 (09:00→10:18)
[2021-05-25] MEDS: lamoTRIgine 100MG TAB PO SCH ×2 (09:00→10:18)
[2021-05-25 16:11] VITALS: BP 148/92
[2021-05-25] MEDS: OLANZapine ORAL DISINTEGRATING TAB 5MG PO PRN (19:49)
[2021-05-25] MEDS: CARIPRAZINE 3MG CAPSULE (VRAYLAR) PO SCH (21:24)
[2021-05-25] MEDS: QUEtiapine FUMARATE 100 MG TAB PO SCH (21:24)
[2021-05-26] MEDS: OLANZapine ORAL DISINTEGRATING TAB 5MG PO PRN ×2 (01:04→07:26)
[2021-05-26] MEDS: LORazepam 2 MG TAB PO PRN (03:59)
[2021-05-26 06:49] VITALS: BP 132/77
[2021-05-26] MEDS ORDERED: NICO21PAT TD (08:33)
[2021-05-26] MEDS ORDERED: LAMO100T80 PO (08:33)
[2021-05-26] MEDS ORDERED: QUET100T2 PO (08:33)
[2021-05-26] MEDS ORDERED: VRAY3CAP PO (08:33)
[2021-05-26] MEDS ORDERED: ASEN5TA SL (08:33)
[2021-05-26] MEDS: lamoTRIgine 100MG TAB PO SCH (09:26)
[2021-05-26] MEDS: LORATADINE 10 MG TAB PO SCH (09:27)
== END 2021-05-26 13:25 | disposition home or self-care (01) | DRG 885 ==
LOC: M ED 16:58 → M ED INP 19:51 → M PSY 19:51
PROVIDERS: ADMIT Psychiatry & Neurology Psychiatry; ATTEND Student in an Organized Health Care Education/Training Program
DX: F31.2 Bipolar disorder, current episode manic severe with psychotic features (principal); F17.200 Nicotine dependence, unspecified, uncomplicated; F63.81 Intermittent explosive disorder; F84.9 Pervasive developmental disorder, unspecified; Z79.899 Other long term (current) drug therapy; Z88.8 Allergy status to other drugs, medicaments and biological substances; I10 Essential (primary) hypertension

== ENCOUNTER 2021-06-20 21:01 | Emergency (ER) | payer OTHER ==
[~2021-06-20] VITALS: Ht 177.8 cm; Wt 90.9 kg
[~2021-06-20 21:01] MED LIST changes: +ASEN5TA SL; +LORA2TAB14 PO; +QUET100T2 PO; +VRAY3CAP PO
[2021-06-20 21:14] VITALS: BP 158/79
[2021-06-20] MEDS ORDERED: RISP2TAB32 PO (21:14)
== END 2021-06-21 00:50 | disposition left against medical advice (07) ==
LOC: M ED 21:01
DX: Z53.21 Procedure and treatment not carried out due to patient leaving prior to being seen by health care provider (principal)

== ENCOUNTER 2021-07-23 12:21 | Emergency (ER) | payer OTHER ==
[~2021-07-23] VITALS: Ht 175.3 cm; Wt 88.3 kg
[2021-07-23] MEDS ORDERED: SERO1TAB2 PO (12:29)
[2021-07-23] MEDS ORDERED: OLAN1TAB16 (12:29)
[2021-07-23] MEDS ORDERED: LORA1TAB4 (12:29)
[2021-07-23 13:17] VITALS: BP 138/74
== END 2021-07-23 13:26 | disposition home or self-care (01) ==
LOC: M ED 12:21
DX: F43.0 Acute stress reaction (principal); F31.9 Bipolar disorder, unspecified; F17.200 Nicotine dependence, unspecified, uncomplicated; Z88.8 Allergy status to other drugs, medicaments and biological substances; Z79.899 Other long term (current) drug therapy

== ENCOUNTER → 2022-07-02 | Outpatient (REF) | payer OTHER ==
[~2022-07-02] MED LIST changes: +BENZ0.5T2 PO; -BENZ0.5T23 PO; +LORA1TAB23; +OLAN1TAB16; +SERO1TAB2 PO
[2022-07-02 14:30] LABS: ALBUMIN 4.2 G/DL (3.2-5.2); ALKALINE PHOSPHATASE 80 U/L (46-116); ALT/SGPT 26 U/L (7.0-40); AST/SGOT 9 U/L (<34); BILIRUBIN,TOTAL 1.2 MG/DL (0.3-1.2); BLOOD UREA NITROGEN 12 MG/DL (9-23); CALCIUM LEVEL 9.3 MG/DL (8.5-10.1); CARBON DIOXIDE LEVEL 27 MMOL/L (20-31); CHLORIDE LEVEL 107 MMOL/L (98-107); CREATININE FOR GFR 0.94 MG/DL (0.70-1.30); GLOMERULAR FILTRATION RATE > 60.0 (>60); GLUCOSE, FASTING 85 MG/DL (60-100); POTASSIUM SERUM 4.6 MMOL/L (3.5-5.1); SODIUM LEVEL 140 MMOL/L (136-145); TOTAL PROTEIN 6.7 G/DL (5.7-8.2)
[2022-07-02 14:33] LABS: BASO % 0.6 % (0.0-1.0); EOS # 0.1 10^3/uL (0.0-0.5); HEMATOCRIT 49.7 % (42.0-52.0); HEMOGLOBIN 17.3 g/dl (13.5-17.5); LYMPH # 2.1 10^3/uL (1.5-5.0); LYMPH % 30.4 % (24.0-44.0); MEAN CORPUSCULAR HEMOGLOBIN 30.5 pg (27.0-33.0); MEAN CORPUSCULAR HGB CONC 34.8 g/dl (32.0-36.5); MEAN CORPUSCULAR VOLUME 87.7 fl (80.0-96.0); MONO # 0.6 10^3/uL (0.0-0.8); MONO % 9.2 % (2.0-8.0); NEUTROPHILS # 4.1 10^3/uL (1.5-8.5); NEUTROPHILS % 58.4 % (36.0-66.0); PLATELET COUNT, AUTOMATED 228 10^3/uL (150-450); RED BLOOD COUNT 5.67 10^6/uL (4.30-6.10)
[2022-07-02 14:34] LABS: THYROID STIMULATING HORMONE 1.327 uIU/ML (0.55-4.78)
[2022-07-02 14:35] LABS: FREE T4 1.26 NG/DL (0.89-1.76); TESTOSTERONE 329 NG/DL (241-827)
== END ==
LOC: M SFHCADAM 09:41
PROVIDERS: ATTEND Physician Assistant
DX: N52.9 Male erectile dysfunction, unspecified (principal)

== ENCOUNTER → 2023-01-26 | Outpatient (REF) | payer OTHER | LOC: M LABDRWAD 14:52 | PROVIDERS: ATTEND Psychiatry & Neurology Psychiatry | DX: F31.9 Bipolar disorder, unspecified (principal); F90.9 Attention-deficit hyperactivity disorder, unspecified type; F43.22 Adjustment disorder with anxiety ==

== ENCOUNTER → 2023-03-22 | Outpatient (REF) | payer OTHER, BC ==
[~2023-03-22] MED LIST changes: +RISP-105 PO; -RISP-8 PO
== END ==
LOC: M LABWUC 09:38
PROVIDERS: ATTEND Psychiatry & Neurology Psychiatry
DX: F31.9 Bipolar disorder, unspecified (principal); F43.22 Adjustment disorder with anxiety; F90.9 Attention-deficit hyperactivity disorder, unspecified type

== ENCOUNTER → 2023-03-22 | Outpatient (REF) | payer OTHER, BC ==
[2023-03-23 13:41] LABS: CHLAMYDIA DNA AMPLIFICATION NEGATIVE (NEGATIVE); GC DNA AMPLIFICATION NEGATIVE (NEGATIVE)
== END ==
LOC: M LABWUC 09:39
PROVIDERS: ATTEND Physician Assistant Medical
DX: Z00.00 Encounter for general adult medical examination without abnormal findings (principal); N45.1 Epididymitis

== ENCOUNTER → 2023-08-25 | Outpatient (REF) | payer BC, OTHER ==
[~2023-08-25] MED LIST changes: +RISP-106 PO; -RISP-7 PO; -RISP-9 PO; +RISP0.5T82 PO
[2023-08-25 20:02] LABS: BASO # 0.1 10^3/uL (0.0-0.2); BASO % 0.5 % (0.0-1.0); EOS # 0.2 10^3/uL (0.0-0.5); EOS % 1.7 % (0.0-3.0); HEMATOCRIT 45.8 % (42.0-52.0); LYMPH # 3.7 10^3/uL (1.5-5.0); LYMPH % 32.2 % (24.0-44.0); MEAN CORPUSCULAR HEMOGLOBIN 30.8 pg (27.0-33.0); MEAN CORPUSCULAR HGB CONC 34.9 g/dl (32.0-36.5); MEAN CORPUSCULAR VOLUME 88.2 fl (80.0-96.0); MONO # 0.9 10^3/uL (0.0-0.8); MONO % 7.7 % (2.0-8.0); NEUTROPHILS # 6.6 10^3/uL (1.5-8.5); NEUTROPHILS % 57.3 % (36.0-66.0); PLATELET COUNT, AUTOMATED 230 10^3/uL (150-450); RED BLOOD COUNT 5.19 10^6/uL (4.30-6.10); WHITE BLOOD COUNT 11.5 10^3/uL (4.0-10.0)
[2023-08-25 20:26] LABS: BLOOD UREA NITROGEN 15 MG/DL (9-23); CALCIUM LEVEL 9.6 MG/DL (8.5-10.1); CARBON DIOXIDE LEVEL 27 MMOL/L (20-31); CHLORIDE LEVEL 106 MMOL/L (98-107); GLOMERULAR FILTRATION RATE > 60.0 (>60); GLUCOSE, FASTING 93 MG/DL (60-100); POTASSIUM SERUM 4.1 MMOL/L (3.5-5.1); SODIUM LEVEL 139 MMOL/L (136-145)
[2023-08-25 20:28] LABS: THYROID STIMULATING HORMONE 4.547 uIU/ML (0.55-4.78)
[2023-08-30 16:54] LABS: LITHIUM LEVEL 0.59 MMOL/L (1.0-1.20)
== END ==
LOC: M LAB REF 19:43
PROVIDERS: ATTEND Psychiatry & Neurology Psychiatry
DX: F31.9 Bipolar disorder, unspecified (principal); F90.9 Attention-deficit hyperactivity disorder, unspecified type; F43.22 Adjustment disorder with anxiety

== ENCOUNTER → 2024-08-13 | Outpatient (REF) | payer BC, OTHER | LOC: M LAB REF 17:42 | PROVIDERS: ATTEND Physician Assistant | DX: J06.9 Acute upper respiratory infection, unspecified (principal) ==